=== PATIENT | male | born 1950 | race Caucasian/White ===

== ENCOUNTER → 2019-07-19 08:41 | Outpatient (CLI) | payer MEDICARE, BC ==
[~2019-07-19 08:41] MED LIST: BAYER CHEWABLE81 MG PO; CELEBREX200 MG PO; CO Q-10400 MG PO; COZAAR50 MG PO; FLAGYL500 MG PO; GLUCOPHAGE850 MG PO; GORDON'S VITE480 G1 TP; HYDROCHLOROTH12.5 M1 PO; LEVAQUIN750 MG PO; LIPITOR20 MG PO; METAMUCIL PACKE1 PKT PO; MIRALAX17 GM PO; PLAVIX75 MG PO; ULTRAM50 MG PO
--- NOTE | 2019-07-24 11:10 | ST ---
PATIENT:WILFRIDO BUCK MEDICAL RECORD: [id number] SEX: M LOCATION:[facility] ORDER #: ADMISSION DATE: 07/19/19 AGE OF PATIENT: 68 REFERRING PHYSICIAN: INTERPRETING PHYSICIAN: CASTRO CELIS MD DATE OF SERVICE: 07/19/2019 PROCEDURE: Nuclear stress test. INDICATIONS: Angina, shortness of breath, hypertension and hyperlipidemia. He was exercised on standard Lexiscan protocol with 33 mCi of sestamibi injected at peak stress, 11 mCi used previously for rest images. FINDINGS: Gated SPECT reveals preserved ejection fraction at 73% with good wall motion and thickening and brightening throughout all segments. SPECT Imaging: Cardiolite was used as myocardial perfusion agent. There is reversibility inferiorly as well as anteriorly. The inferior defect is moderate severity includes the basal, mid, apical, inferior segments. The anterior defect of mild severity, includes basal, mid, apical anterior segments. There is a large amount of myocardium at risk between the 2 defects. OVERALL IMPRESSION: This is an intermediate- to high-risk nuclear stress test with reversibility anteriorly as well as inferiorly suggestive of multivessel coronary artery disease. TRANSINT:[id number] Voice Confirmation ID: [id number] DOCUMENT ID: [id number] CASTRO CELIS MD at 1110 CC: TATIANA MAYER [id number] DICTATION DATE: 07/20/19 1435 STEEL FITTER: 07/21/19 0653 DEP CLI 07/19/19 [facility] [address] [place] [address]
[2019-08-08 13:15] VITALS: BMI 36.2
== END | disposition home or self-care (01) ==
LOC: D.HCCARDIO 08:41
PROVIDERS: ATTEND Internal Medicine Interventional Cardiology
DX: I20.9 Angina pectoris, unspecified (principal)

== ENCOUNTER 2019-07-28 09:16 | Outpatient (CLI) | payer MEDICARE, BC ==
[~2019-07-28] VITALS: Ht 180.3 cm; Wt 120.5 kg
--- NOTE | ~2019-07-28 | HEMODYNAMI ---
PATIENT:WILFRIDO BUCK MEDICAL RECORD: [id number] : 54 LOCATION:[facility] ADMISSION DATE: 07/28/19 Generatedon:07/31/20198:26 Patient name: WILFRIDO BUCK Patient #: [id number] SSN: [id number] : 1950 Date of study: 07/28/2019 Page: Of Hemodynamic Procedure Report Patient Data Patient Demographics Procedure consent was obtained First Name: WILFRIDO Gender: Male Last Name: CIELO : 1950 Patient #: [id number] Age: 68 year(s) Race: SSN: [id number] Additional ID: [id number] Contact details [address]: [address] [place] [address] State: [place] City: [place] Zip code: [address] Past Medical History Allergies: No known allergies Admission Admission Data Admission Date: 07/28/2019 Admission Time: 9:16 Arrival Date: 07/28/2019 Arrival Time: 0:00 Insurance Payor: Medicaid [facility] #: [id number] Height (in.): 70.87 BSA: 2.37 (m2) Height (cm.): 180 BMI: 37.04 (kg/m2) Weight (lbs.): 264.56 Weight (kg.): 120 Lab Results Lab Result Date: 07/28/2019 Lab Result Time: 0:00 Biochemistry Name Units Result Min Max BUN mg/dl 16 --(---*)-- 7 18 Creatinine mg/dl 1.1 --(--*-)-- 0.6 1.3 eGFR ml/min 70.81075 *-(----)-- 90 120 NONAFRICAN CBC Name Units Result Min Max Hemoglobin g/dl 13.3 -*(----)-- 13.5 17.5 Procedure Procedure Types Cath Procedure Diagnostic Procedure LHC LHC w/Coronaries FFR/IVUS FFR Initial FFR Additional Sedation Charges Moderate Sedation up to 15 minutes PCI Procedure Coronary Stent Coronary Stent Initial Procedure Description Procedure Date Procedure Date: 07/28/2019 Procedure Start Time: 13:35 Procedure End Time: 13:55 Procedure Staff Name Function Alexander Garcia RT Monitor Kalia Quinones MD Performing Physician Aye Khan RT Monitor Pal Underwood RN Nurse Elli Ruiz RT Scrub Indication Angina Procedure Data Cath Procedure Fluoroscopy Diagnostic fluoroscopy Total fluoroscopy Time: 3.2 time: 3.2 min min Diagnostic fluoroscopy Total fluoroscopy dose: 714 dose: 714 mGy mGy Contrast Material Contrast Material Type Amount (ml) Isovue 300 102 Entry Location Entry Primary Successful Side Size Upsize Upsize Entry Closure Succes sful Closure Location (Fr) 1 (Fr) 2 (Fr) Remarks Device Remarks Femoral Right 5 Fr 6 Fr Exoseal artery Short Estimated blood loss: 10 ml Diagnostic catheters Device Type Used For End Catheter Placement MULTIPACK Pigtail 5 Fr LV Angiography catheter MULTIPACK JL 4.0 5Fr Left Coronary catheter Angiography MULTIPACK 3DRC 5Fr Right Coronary catheter Angiography Procedure Complications No complications Procedure Medications Medication Administration Route Dosage 0.9% NaCl I.V. 100 ml/hr Oxygen etCO2 Nasal cannula 2 l/min Heparin Flush Bag added to field 2 bags (1000units/500ml NS) Lidocaine 2% added to field 20 Versed I.V. 2 mg Fentanyl I.V. 100 mcg Heparin Bolus I.V. 4000 units Integrilin (Bolus I.V. 10.7 ml 2mg/ml) Integrilin (Bolus wasted 9.3 ml 2mg/ml) Plavix P.O. 600 mg Hemodynamics Rest BSA: 2.37 (m2) HGB: 13.3 (g/dl) O2 Consumption: Estimated: 279.17 (ml/min) O2 Co nsumption indexed: Estimated:117.79 (ml/min/m) Heart Rate: 74 (bpm) Snapshots Pre Cath Intra NCS Post Cath Vital Signs Time Heart Resp SPO2 etCO2 NIBP (mmHg) Rhythm Pain Sedation Rate (ipm) (%) (mmHg) Status Level (bpm) 13:26:59 78 24 94 0 129/79(101) NSR 0 (11) 10(A) , No pain 13:31:15 77 11 95 42.5 122/71(89) NSR 0 (11) 10(A) , No pain 13:35:29 77 17 97 33.6 119/72(88) NSR 0 (11) 10(A) , No pain 13:39:43 75 16 95 20.9 118/76(93) NSR 0 (11) 10(A) , No pain 13:43:59 79 15 97 30.5 130/75(95) NSR 0 (11) 10(A) , No pain 13:48:17 82 11 96 29.8 115/73(89) NSR 0 (11) 10(A) , No pain 13:52:33 82 17 96 24.6 116/67(89) NSR 0 (11) 10(A) , No pain Medications Time Medication Route Dose Verified Delivered Reason Notes Effectiveness by by 13:36:20 0.9% NaCl I.V. 100 Pal Pal Per physician ml/hr Kj Underwood RN RN 13:36:31 Oxygen etCO2 2 Pal Pal for low 02 sats Nasal l/min Kj Underwood cannula RN RN 13:36:48 Heparin Flush added 2 Pal Pal used for Bag to bags Kj Underwood procedure (1000units/500ml field LIU RN NS) 13:36:59 Lidocaine 2% added 20ml Pal Pal for local to vial Kj Underwood anesthetic RN RN 13:37:12 Versed I.V. 2 mg Pal Pal for sedation Kj Underwood RN RN 13:37:20 Fentanyl I.V. 100 Pal Pal for sedation mcg Kj Underwood RN RN 13:44:02 Heparin Bolus I.V. 4000 Pal Pal for units Kj Underwood anticoagulation RN RN 13:45:16 Integrilin I.V. 10.7 Pal Pal for (Bolus 2mg/ml) ml Kj Underwood antiplatelet RN RN therapy 13:47:17 Integrilin wasted 9.3ml Pal Pal to sharp's (Bolus 2mg/ml) Kj Underwood RN RN 13:51:08 Plavix P.O. 600 Pal Pal for mg Kj Underwood antiplatelet RN RN therapy Procedure Log Time Note 13:08:21 Informed consent obtained and on chart 13:13:14 Procedure Status Elective Heart Cath (OP). 13:14:09 Indication : Angina 13:14:18 Pal Underwood RN sent for patient. Start room use. 13:14:22 Time tracking: Regular hours (M-F 7:00 - 5:00) 13:14:29 Plan of Care:Hemodynamics will remain stable., Cardiac rhythm will remain stable., Comfort level will be maintained., Respiratory function will remain adequate., Patient/ family verbilizes understanding of procedure., Procedure tolerated without complication., Recovers from procedure without complications.. 13:16:42 Arrival Date: 07/28/2019 12:00:00 AM 13:17:14 Insurance Payor : Medicaid 13:17:18 Patient Height : 70.87 inches 13:17:24 Patient Weight : 264.56 lbs 13:18:05 Lab Result : eGFR NONAFRICAN 70.01899 ml/min 13:18:05 Lab Result : Hemoglobin 13.3 g/dl 13:18:05 Lab Result : BUN 16 mg/dl 13:18:05 Lab Result : Creatinine 1.1 mg/dl 13:18:14 Patient received from Pre/Post Procedure Room to [facility] 1 Alert and oriented. Tansferred to table in Supine position. 13:25:48 Warm blankets applied, and marguerite hugger turned on for patient comfort. 13:25:49 Correct patient and procedure confirmed by team. 13:25:50 ECG and BP/O2 sat monitors applied to patient. 13:25:51 Vital chart was started 13:25:52 Baseline sample Acquired. 13:25:58 Rhythm: sinus rhythm 13:26:01 Full Disclosure recording started 13:26:02 - 13:26:11 H&P Date Dictated: 07/28/2019 H&P Addendum completed by physician on da y of procedure. (MUST COMPLETE FOR ALL OUTPATIENTS), New H&P dictated by physician.. 13:26:13 Pre-procedure instructions explained to patient. 13:26:14 Pre-op teaching completed and patient verbalized understanding. 13:26:17 Family in waiting room. 13:26:21 Patient NPO since Midnight. 13:26:32 Patient allergic to No known allergies 13:26:39 Is the patient allergic to Iodine/contrast media? No. 13:26:44 Was the patient premedicated? Yes 13:27:11 Is patient on blood thinner?No 13:27:16 ACC The patient was administered the following blood thiners within the last 24 hours: None 13:27:20 Patient diabetic? Yes. 13:27:23 If diabetic: On Metformin? Yes 13:27:36 If on Metformin: Last Dose? 07/26/2019 13:27:40 ----Pre-sedation anethsthesia assessment.---- 13:27:47 Previous problem with sedation/anesthesia? No ? 13:27:49 Snore? Yes 13:28:31 Sleep apnea? Yes 13:28:34 Deviated septum? No 13:28:36 Opens mouth fully? Yes 13:28:38 Sticks out tongue? Yes 13:28:51 Airway obstruction? Yes sleep apnea 13:28:58 Dentures? Yes in tight 13:29:04 Pre procedure: right dorsailis pedis pulse 2+ Normal; easily identifiable; not easily obliterated 13:29:08 Pre procedure: left dorsailis pedis pulse 2+ Normal; easily identifiable; not easily obliterated 13:29:17 Modified Rohit's test Radial > 7 seconds. failed. 13:29:38 Patient pain scale 0/10 ?. 13:29:46 IV patent on arrival in left forearm with 0.9% NaCl at O. 13:29:55 Lab results completed and on chart. 13:31:45 Risk of Mortality: 0.1 13:31:48 Risk of blood transfusion: 0.1 13:31:53 Risk of REJI: 0.2 13:31:57 Right groin area was prepped with chlora-prep and draped in sterile fashion 13:31:59 Alarms reviewed by R. N. 13:32:00 Sharps counted by scrub and verified by R.N. 13:32:03 Physician arrived 13:32:04 --------ALL STOP TIME OUT------ 13:32:08 Final Timeout: patient, procedure, and site verified with staff and physician. All members of the team are in agreement. 13:32:42 Right groin site verified by team. 13:32:49 Fire Safety Assessment: A--An alcohol-based skin anteseptic being used preoperatively., C--Open oxygen or nitrous oxide is being used., D--An ESU, laser, or fiber-optic light is being used. 13:32:54 Physical assessment completed. ASA score P 2 - A patient with mild systemic disease as per Kalia Quinones MD. 13:33:01 2) 60-89 Mildly reduced kidney function, and other findings (as for stage 1) point to kidney disease. 13:33:08 Maximum allowable contrast dose (3.7 X eGFR X 0.75)197 ml. 13:33:14 Sedation plan: IV Moderate Sedation Medication:Versed, Fentanyl 13:33:21 Use device set Femoral Dx 13:33:23 ACIST Syringe (06256) opened to sterile field. 13:33:24 Bag Decanter (2002S) opened to sterile field. 13:33:25 Medline Cath Pack ([id number]) opened to sterile field. 13:34:30 ACIST Manifold (12401) opened to sterile field. 13:34:30 ACIST Hand Control (16773) opened to sterile field. 13:34:32 DIAGNOSTIC Multipack 5Fr catheter set (AU5407) opened to sterile field. 13:34:33 Tegaderm 4 x 4 (1626W) opened to sterile field. 13:34:35 EMERALD Guide Wire (317-209) opened to sterile field. 13:34:35 SHEATH 5FR [place] (AHX517) opened to sterile field. 13:34:42 Zero performed for pressure channel P1 13:34:55 Procedure started. 13:35:00 Local anesthetic to right femoral artery with Lidocaine 2% by Kalia Quinones MD.INITIAL ACCESS ONLY 13:35:04 Injector settings: Ml/sec: 10, Volume: 20, 13:35:17 A 5 Fr sheath was inserted into the Right Femoral artery 13:35:35 A MULTIPACK Pigtail 5 Fr catheter was advanced over the wire and used for LV Angiography. 13:35:39 LV gram done using GUTIERREZ 13:36:10 EF : 55 % 13:36:18 Catheter removed. 13:36:20 0.9% NaCl 100 ml/hr I.V. was administered by Pal Lorigan RN; Per physician; Verbal order read back and verified. 13:36:29 A MULTIPACK JL 4.0 5Fr catheter was advanced over the wire and used for Left Coronary Angiography. 13:36:31 Oxygen 2 l/min etCO2 Nasal cannula was administered by Pal Underwood RN; for low 02 sats; Verbal order read back and verified. 13:36:48 Heparin Flush Bag (1000units/500ml NS) 2 bags added to field was administered by Pal Underwood RN; used for procedure; Verbal order read back and verified. 13:36:56 LCA angiography performed. 13:36:59 Lidocaine 2% 20ml vial added to field was administered by Pal Underwood RN; for local anesthetic; Verbal order read back and verified. 13:37:12 Versed 2 mg I.V. was administered by Pal Underwood RN; for sedation; Verbal order read back and verified. 13:37:20 Fentanyl 100 mcg I.V. was administered by Pal Underwood RN; for sedation; Verbal order read back and verified. 13:38:17 Catheter removed. 13:38:26 A MULTIPACK 3DRC 5Fr catheter was advanced over the wire and used for Right Coronary Angiography. 13:38:30 RCA angiography performed. 13:39:07 ACCDominant side:Co-Dominant 13:39:45 Catheter removed. 13:40:00 Sheath upsized to a 6 Fr Short. 13:40:07 GUIDE 6FR XBLAD 3.5 catheter ([id number]) opened to sterile field. 13:40:28 6 Fr xblad3.5 guide catheter was inserted over the wire 13:40:35 [place] Verrata Plus pressure wire (32119F) opened to sterile field. 13:40:44 INFLATOR Merit BasixCompak (NI3860) opened to sterile field. 13:41:00 SHEATH 6FR [place] (PYF141) opened to sterile field. 13:41:09 FFR/IFR wire advanced. 13:41:48 Wire advanced across lesion. 13:42:22 Wire advanced across the diag 13:43:30 Diag1 lesion measured at .90 with IFR 13:43:32 Wire redirected to lad. 13:43:42 Wire advanced across lesion. 13:43:51 mLAD lesion measured at 0.87 with IFR 13:44:02 Heparin Bolus 4000 units I.V. was administered by Pal Underwood RN; for anticoagulation; Verbal order read back and verified. 13:44:18 Pre PCI Site: [place] mLAD has 70% stenosis. 13:45:16 Integrilin (Bolus 2mg/ml) 10.7 ml I.V. was administered by Pal Underwood RN; for antiplatelet therapy; Verbal order read back and verified. 13:45:39 Place stent Inflation Number: 1 A MANSI RX 3.5 x 18 stent ([id number]) was prepped and advanced across the Mid LAD 70. The stent was deployed at 15 AMBERLY for 0:10 (min:sec) 0. 13:47:04 Stent catheter was removed intact over wire. 13:47:06 Wire removed. 13:47:07 Guide catheter removed. 13:47:17 Integrilin (Bolus 2mg/ml) 9.3ml wasted was administered by Pal Underwood RN; to sharp's; Verbal order read back and verified. 13:47:19 EXOSEAL 6Fr (EX600) opened to sterile field. 13:47:55 Sheath removed intact; hemostasis achieved with Exoseal to the Right Femoral artery. 13:47:58 Procedure ended.(Physican Out) 13:48:06 Contrast amount:Isovue 300 102ml. 13:48:19 Fluoroscopy dose: 714 mGy 13:48:19 Flurop Dose total: 714 13:48:27 Dose Area Product 82894 mGy/cm. 13:50:13 Maximum allowable dose exceeded? No. 13:50:15 Sharps counted by scrub and verified by R.N. 13:50:23 Fluoroscopy time 03.20 minutes. 13:50:27 Insertion/operative site no bleeding no hematoma. 13:50:32 Post-op/insertion site Right Femoral artery dressed using a 4 x 4 and Tegaderm. 13:50:37 Post right femoral artery:stable 13:50:40 Post Procedure Pulses reassessed and unchanged 13:50:46 Post-procedure physical assessment completed. ASA score P 2 - A patient with mild systemic disease as per Kalia Quinones MD. 13:50:51 Post procedure rhythm: unchanged. 13:50:56 Estimated blood loss: 10 ml 13:50:57 Post procedure instruction explained to patient.Patient verbalizes understanding. 13:50:58 Patient needs reinforcement of post procedure teaching. 13:51:08 Plavix 600 mg P.O. was administered by Pal Underwood RN; for antiplatelet therapy; Verbal order read back and verified. 13:51:34 Procedure type changed to Cath procedure, Diagnostic procedure, [facility], C w/Coronaries, FFR/IVUS, FFR Initial, FFR Additional, Sedation Charges, Moderate Sedation up to 15 minutes, PCI procedure, Coronary Stent, Coronary Stent Initial 13:53:46 ACT drawn and resulted at 236 seconds. (normal therapeutic range 180-24 0 seconds). 13:54:01 Procedure and supply charges have been captured, reviewed, submitted an d are correct. 13:55:15 Procedure Complication : No complications 13:55:18 Vital chart was stopped 13:55:23 [facility] Findings: MVD- PCI performed (see procedure note) 13:55:28 Operative report dictated upon procedure completion. 13:55:29 See physician's report for complete and final results. 13:55:31 Report given to Pre/Post Procedure Room. 13:55:35 Patient transfered to Pre/Post Procedure Room with Stretcher. 13:55:39 Procedure ended. 13:55:39 Full Disclosure recording stopped 13:55:48 ACC-PCI Only Patient was given prescriptions, or instructed by Kalia Quinones MD to start/continue the following medications upon discharge: Plavix 13:56:09 ACC Patient presents with Stable Angina CCS Anginal Class 2--Slight limitation of ordinary activity. 13:56:54 ACCPatient has been prescribed/administered the following anti-anginal medication within the last 2 weeks: CHERRI-Inhibitor 13:57:15 End room use (Document Last) Intervention Summary Intervention Notes Time ActionType Lesion and Equipment Used Action# Pressure Duration Attributes 13:45:39 Place stent Mid LAD MANSI RX 3.5 x 1 15 00:10 18 stent ([id number]) Device Usage Item Name Manufacture Quantity Catalog Hospital Part Current Minimal Lot# / Number Charge Number Stock Stock Serial# Code ACIST Syringe Acist 1 01334 030735 920111 691007 20 (91611) Bizimply Inc Bag Decanter Microtek 1 014303 98941 098283 5 () Elephanti Inc. Medline Cath Medline 1 [id number] 055447 53760 737311 5 Pack ([id number]) ACIST Hand Acist 1 32610 618647 729085 144129 5 Control Medical (96974) Systems Inc ACIST Manifold Acist 1 88086 157370 405554 980554 5 (88024) Medical Systems Inc DIAGNOSTIC Cardinal 1 PU4998 311088 87340 190335 30 Multipack 5Fr Health catheter set (LW6983) Tegaderm 4 x 4 3M 1 1626W 116059 238627 792932 5 (1626W) SHEATH 5FR Terumo 1 JHC512 868961 486009 821063 5 [place] (DWU697) EMERALD Guide Cardinal 1 502-455 523642 868665 055561 5 Wire (502-455) Health MULTIPACK Cardinal 1 809880 5 Pigtail 5 Fr Health catheter MULTIPACK JL Cardinal 1 775555 5 4.0 5Fr Health catheter MULTIPACK 3DRC Cardinal 1 123558 5 5Fr catheter Health GUIDE 6FR Cardinal 1 [id number] 308966 447313 242787 10 XBLAD 3.5 Health catheter (69655706) [place] 1 62833R 469894 772260775 722811 5 Verrata Plus pressure wire (80275L) INFLATOR Merit Merit 1 FI2258 618177 203846 998376 15 BasixCompak Medical (DK1438) SHEATH 6FR Terumo 1 IUK468 193284 989511 031476 40 [place] (FHV654) MANSI RX 3.5 x Medtronic 1 [id number] 935123 1210840 878324 5 [id number] 18 stent ([id number]) EXOSEAL 6Fr Cardinal 1 EX600 031285 279000 305687 10 (EX600) Health Signature Audit [place] Stage Time Signature Unsigned Intra-Procedure 07/28/2019 Aye 1:58:42 PM Erin RT(R) (CV) Intra-Procedure 07/28/2019 Pal 1:59:15 PM Kj LIU Intra-Procedure 07/28/2019 Kalia Quinones MD 1:59:42 PM 07/31/2019 8:22:26 AM Intra-Procedure 07/31/2019 Kalia Quinones 8:26:17 AM MD [facility] [address] [place] [address]
[2019-07-28] MEDS ORDERED: GLUCOPHAGE850 MG PO (10:06)
[2019-07-28] MEDS ORDERED: ULTRAM50 MG PO (10:06)
[2019-07-28] MEDS ORDERED: COZAAR50 MG PO (10:07)
[2019-07-28] MEDS ORDERED: LIPITOR20 MG PO (10:08)
[2019-07-28] MEDS ORDERED: HYDROCHLOROTH12.5 M1 PO (10:08)
[2019-07-28] MEDS ORDERED: GORDON'S VITE480 G1 TP (10:09)
[2019-07-28] MEDS ORDERED: CELEBREX200 MG PO (10:09)
[2019-07-28] MEDS ORDERED: METAMUCIL PACKE1 PKT PO (10:09)
[2019-07-28] MEDS ORDERED: CO Q-10400 MG PO (10:09)
[2019-07-28] MEDS ORDERED: MIRALAX17 GM PO (10:10)
[2019-07-28 10:23] VITALS: BP 138/72; Ht 180.3 cm; Wt 120.5 kg
[2019-07-28 10:38] LABS: BASOPHILS 0.1 % (0-2); EOSINOPHILS 1.1 % (0-7); HEMOGLOBIN 13.3 g/dL (13.5-17.5); IMMATURE GRANULOCYTES 0.3 % (0-5); LYMPHOCYTES 16.5 % (15-50); MCH 24.6 pg (26.0-34.0); MCHC 31.7 g/dL (31.0-37.0); MCV 77.6 fL (80.0-100.0); MEAN PLATELET VOLUME 11.2 fL (7.4-10.4); MONOCYTES 10.6 % (2-11); NEUTROPHILS 71.4 % (40-80); PLATELET COUNT 253 10x3/uL (130-400); RBC 5.41 10x6/uL (4.20-6.10); RDW 15.6 % (11.5-14.5); WBC 10.8 10x3/uL (4.8-10.8)
[2019-07-28 10:52] LABS: ANION GAP 10.3 mmol/L (8-16); CALCIUM 9.2 mg/dL (8.5-10.1); CARBON DIOXIDE 29.8 mmol/L (21.0-32.0); CREATININE - SERUM 1.1 mg/dL (0.6-1.3); POTASSIUM - SERUM 4.1 mmol/L (3.5-5.1)
[2019-07-28 11:06] LABS: LDL-HDL RATIO 2.4 ratio (1.5-3.5)
--- NOTE | 2019-07-28 14:04 | NUR ---
PT ARRIVED BY STRETCHER. PLACED ON MONITORS. ASSESSMENT COMPLETED. FAMILY AT BEDSIDE. VSS.
[2019-07-28] MEDS ORDERED: BAYER CHEWABLE81 MG PO (14:15)
[2019-07-28] MEDS ORDERED: PLAVIX75 MG PO (14:15)
--- NOTE | 2019-07-28 14:20 | NUR ---
PT RESTING COMFORTABLY. VSS. RIGHT GROIN DRESSING C/D/I. NO S/S OF HEMATOMA NOTED. CALL LIGHT WITHIN REACH. FAMILY AT BEDSIDE.
--- NOTE | 2019-07-28 14:50 | NUR ---
RIGHT GROIN DRESSING C/D/I. NO S/S OF HEMATOMA NOTED. CALL LIGHT WITHIN REACH. FAMILY AT BEDSIDE. VSS. RIGHT PEDAL PULSE PALPABLE.
--- NOTE | 2019-07-28 15:20 | NUR ---
RIGHT GROIN DRESSING C/D/I. NO S/S OF HEMATOMA NOTED. CALL LIGHT WITHIN REACH. FAMILY AT BEDSIDE. VSS. RIGHT PEDAL PULSE PALPABLE. PT TOLERATING SIPS OF WATER. DENIES NAUSEA.
--- NOTE | 2019-07-28 15:50 | NUR ---
PT RESTING COMFORTABLY. RIGHT GROIN DRESSIN C/D/I. NO S/S OF HEMATOMA NOTED. CALL LIGHT WITHIN REACH. VSS.
--- NOTE | 2019-07-28 16:30 | NUR ---
HEAD OF BED INC TO 30 DEGREES. TOLERATED WELL. RIGHT GROIN DRESSING C/D/I. NO S/S OF HEMATOMA NOTED. CALL LIGHT WITHIN REACH. FAMILY AT BEDSIDE. SET UP WITH SANDWICH TRAY AND DRINK. DENIES NAUSEA/PAIN AT THIS TIME.
--- NOTE | 2019-07-28 17:18 | NUR ---
PIV D/C'D WITH CATH TIP INTACT. PT TOLERATED WELL. RIGHT GROIN DRESSING C/D/I. NO S/S OF HEMATOMA NOTED. VSS. PT INSTRUCTED TO GET UP AND DRESSED. AMBULATED TO RESTROOM. VOIDED WITHOUT DIFFICULTY.
--- NOTE | 2019-07-28 17:30 | NUR ---
DISCUSSED DISCHARGE INSTRUCTIONS WITH PT AND PT'S FAMILY. THEY VOICED UNDERSTANDING.
--- NOTE | 2019-07-28 17:35 | NUR ---
PT TAKEN OUT TO VEHICLE BY WHEELCHAIR. NO S/S OF DISTRESS NOTED. ALL BELONGINGS AND PAPERWORK IN HAND.
--- NOTE | 2019-08-08 11:40 | OP ---
PATIENT NAME: WILFRIDO BUCK MEDICAL RECORD: [id number] :54 LOCATION:D.CAT ADMISSION DATE: SURGEON: CASTRO CELIS MD DATE OF OPERATION: 07/28/2019 PROCEDURES: 1. PTCA stent LAD. 2. IFR LAD and LAD diagonal. 3. Left heart catheterization. 4. Selective coronary angiography. 5. Left ventriculogram. INDICATION: Angina and coronary artery disease. PROCEDURE PERFORMED: After informed consent was obtained and after a detailed description of risks, benefits as well as alternative therapies, the patient elected to proceed with angiogram and angioplasty. The right femoral area was prepped and draped in normal sterile fashion. Right femoral artery was cannulated via modified Seldinger technique with placement of 6-Luxembourgish sheath. All catheters exchanged through this sheath. FINDINGS: Left ventriculogram was performed in standard 30-degree GUTIERREZ view, reveals good cardiac wall motion, ejection fraction in the 55% range. SELECTIVE CORONARY ANGIOGRAPHY: 1. Left main is with no significant angiographic disease. 2. Left anterior descending has a 70% to 75% stenosis in the mid vessel. An IFR was abnormal at 0.84. There is a questionable stenosis of the diagonal; however, IFR is normal at 0.90. 3. The left circumflex has mild irregularities, but no flow-limiting stenosis. 4. The right coronary has mild irregularities, but no flow-limiting stenosis. PTCA STENT OF THE LAD: The stent used was a 3.5 x 18 mm [place]. Result was 0% residual stenosis. OVERALL IMPRESSION: Successful percutaneous transluminal angioplasty stent of the left anterior descending going from 70% to 75% initial stenosis with an abnormal IFR to 0% residual stenosis. TRANSINT:[id number] Voice Confirmation ID: [id number] DOCUMENT ID: [id number] CASTRO CELIS MD at 1140 CC: [id number] DICTATION DATE: 07/28/19 1352 RODENT CONTROL WORKER: 07/28/19 1448 DEP CLI 07/28/19 [facility] [address] [place] [address]
== END 2019-07-28 17:35 | disposition home or self-care (01) ==
LOC: D.CATH 09:16
PROVIDERS: ATTEND Internal Medicine Interventional Cardiology
DX: I25.110 Atherosclerotic heart disease of native coronary artery with unstable angina pectoris (principal); R94.30 Abnormal result of cardiovascular function study, unspecified; R06.02 Shortness of breath
CPT/HCPCS: C9600; 93572; 93458

== ENCOUNTER 2019-08-07 13:30 | Inpatient (IN) | payer MEDICARE, BC ==
[~2019-08-07] VITALS: Ht 180.3 cm; Wt 117.9 kg
[~2019-08-07 13:30] MED LIST changes: -FLAGYL500 MG PO; -LEVAQUIN750 MG PO
[2019-08-07 14:39] LABS: ANION GAP 12.8 mmol/L (8-16); CALCIUM 8.9 mg/dL (8.5-10.1); CARBON DIOXIDE 30.3 mmol/L (21.0-32.0); CREATININE - SERUM 1.2 mg/dL (0.6-1.3); POTASSIUM - SERUM 4.1 mmol/L (3.5-5.1)
[2019-08-07 14:40] LABS: BASOPHILS 0.3 % (0-2); EOSINOPHILS 1.8 % (0-7); HEMATOCRIT 37.1 % (42.0-54.0); HEMOGLOBIN 11.5 g/dL (13.5-17.5); IMMATURE GRANULOCYTES 0.4 % (0-5); LYMPHOCYTES 22.5 % (15-50); MCH 24.3 pg (26.0-34.0); MCV 78.4 fL (80.0-100.0); MONOCYTES 8.3 % (2-11); NEUTROPHILS 66.7 % (40-80); PLATELET COUNT 294 10x3/uL (130-400); RBC 4.73 10x6/uL (4.20-6.10); RDW 15.3 % (11.5-14.5)
[2019-08-07 14:45] LABS: ALBUMIN 3.6 g/dL (3.4-5.0); BILIRUBIN - TOTAL 0.6 mg/dL (0.2-1.3); PROTEIN - SERUM 7.9 g/dL (6.4-8.2)
[2019-08-07 17:25] VITALS: BP 145/74
[2019-08-07 19:06] VITALS: BP 130/76
--- NOTE | 2019-08-07 19:46 | MORECARE ---
CASE MANAGEMENT DISCHARGE SUMMARY PATIENT: WILFRIDO SIMON UNIT: [id number] ADM DATE: 08/07/19 AGE: 68 : 54 SEX: M ROOM/BED: D.2209 AUTHOR: AMEE JAMA PHYSICIAN: REFERRING PHYSICIAN: TATIANA MAYER DO DATE OF SERVICE: 08/07/19 Discharge Plan Patient Name: WILFRIDO SIMON Facility: [facility]:[place] : 1950 Planned Disposition: Home Anticipated Discharge Date: 08/09/19 Discharge Date: Expected LOS: 2 Initial Reviewer: [email or web address] Initial Review Date: 08/07/2019 Generated: 08/07/19 8:46 pm DCPIA - Discharge Planning Initial Assessment Updated by [email or web address]: Rachel Anthony on 08/07/19 7:45 pm * Is the patient Alert and Oriented? Yes * How many steps to enter\exit or inside your home? * PCP Dr. Mayer * Pharmacy [facility] * Preadmission Environment Home with Family * ADLs Independent * Equipment Bedside Commode Cane Crutch Rolling Walker * List name and contact numbers for known caregivers / representatives who currently or will assist patient after discharge: Radha Simon - - [phone] * Verbal permission to speak to the caregivers and representatives has been obtained from the patient. Yes * Community resources currently utilized None * Additional services required to return to the preadmission environment? No * Can the patient safely return to the preadmission environment? Yes * Has this patient been hospitalized within the prior 30 days at any hospital? No Patient Name: WILFRIDO SIMON Page [id number] at 1946 All edits/amendments must be made on the electronic document DICTATION DATE: 08/07/191945 COST SPECIALIST: MERLYN 08/07/191945 RPT#: [id number] DC DATE: STATUS: ADM IN [facility] [address] [place] [address] END OF REPORT
--- NOTE | 2019-08-07 19:53 | MORECARE ---
CASE MANAGEMENT DISCHARGE SUMMARY PATIENT: WILFRIDO SIMON UNIT: [id number] ADM DATE: 08/07/19 AGE: 68 : 54 SEX: M ROOM/BED: D.2209 AUTHOR: EVITA,DOC PHYSICIAN: REFERRING PHYSICIAN: TATIANA MAYER DO DATE OF SERVICE: 08/07/19 Discharge Plan Patient Name: WILFRIDO SIMON Facility: [facility]:[place] : 1950 Planned Disposition: Home Anticipated Discharge Date: 08/09/19 Discharge Date: Expected LOS: 2 Initial Reviewer: [email or web address] Initial Review Date: 08/07/2019 Generated: 08/07/19 8:52 pm DCP- Discharge Planning Updated by [email or web address]: Rachel Anthony on 08/07/19 6:[address] DC PLAN: Home with independently. ANTICIPATED DC NEEDS: Denied known dc needs. CM met with patient to complete initial dc planning assessment. CM educated patient on the CM role and verbal consent given by patient to complete assessment. CM verified patient's address, phone number, and emergency contact phone numbers. Patient lives at home with his independently. At discharge patient plans to return home and feels this is a safe discharge. CM discussed availability of home health, rehab services, and medical equipment. Patient denied known discharge needs at this time. Transportation provider at discharge will be his . CM will continue to follow and will assist as needed with dc plans/needs. listed all 3 of their children to be able to receive information on patient: Dorina Ruggiero, Sarah Simon. Rachel Anthony RN, [facility] DCPIA - Discharge Planning Initial Assessment Updated by [email or web address]: Rachel Anthony on 08/07/19 7:45 pm * Is the patient Alert and Oriented? Yes * How many steps to enter\exit or inside your home? * PCP Dr. Mayer * Pharmacy [facility] * Preadmission Environment Home with Family * ADLs Independent * Equipment Bedside Commode Cane Crutch Rolling Walker * List name and contact numbers for known caregivers / representatives who currently or will assist patient after discharge: Radha Simon - - [phone] * Verbal permission to speak to the caregivers and representatives has been obtained from the patient. Yes * Community resources currently utilized None * Additional services required to return to the preadmission environment? No * Can the patient safely return to the preadmission environment? Yes * Has this patient been hospitalized within the prior 30 days at any hospital? No Last DP export: 08/07/19 6:46 Patient Name: WILFRIDO SIMON Page [id number] at 1951 All edits/amendments must be made on the electronic document DICTATION DATE: 08/07/191951 CALL CIRCUIT WORKER: MERLYN 08/07/191951 RPT#: [id number] DC DATE: STATUS: ADM IN [facility] [address] [place] [address] END OF REPORT
[2019-08-07 22:13] VITALS: BP 135/65
[2019-08-07 22:25] VITALS: BP 135/65; BMI 36.3
[2019-08-07 23:22] LABS: HEMATOCRIT 33.3 % (42.0-54.0); HEMOGLOBIN 10.6 g/dL (13.5-17.5)
[2019-08-08 01:21] VITALS: BP 133/65
[2019-08-08 01:24] LABS: APPEARANCE CLEAR (CLEAR); BILIRUBIN NEGATIVE (NEGATIVE); COLOR YELLOW (YELLOW); GLUCOSE NEGATIVE (NEGATIVE); KETONE NEGATIVE (NEGATIVE); NITRITE NEGATIVE (NEGATIVE); PROTEIN NEGATIVE (NEGATIVE); SPECIFIC GRAVITY 1.015 (1.005-1.020); UROBILINOGEN NORMAL (NORMAL)
--- NOTE | 2019-08-08 02:58 | NUR ---
Patient admitted from ER, with at bedside. Alert and orented x4 able to voice needs and wants to staff, on room air but stated that has a c-pap that he uses at night at home , not with pt. at this time. IV to left AC with protonix IV. Iv is intact with no redness noted. IV to right hand witn ns in place and paten, with no redness noted at this time. Call light in reach, side rails up x2 . Remaines NPO per orders. Telemetry in place 69 SR. FSBS AC&HS. SCD's in place. checked often for needs and safety.
[2019-08-08 05:34] VITALS: BP 114/65
[2019-08-08 07:02] LABS: BASOPHILS 0.1 % (0-2); EOSINOPHILS 1.5 % (0-7); HEMATOCRIT 33.7 % (42.0-54.0); HEMOGLOBIN 10.2 g/dL (13.5-17.5); IMMATURE GRANULOCYTES 0.4 % (0-5); MCH 23.7 pg (26.0-34.0); MCHC 30.3 g/dL (31.0-37.0); MCV 78.4 fL (80.0-100.0); MEAN PLATELET VOLUME 11.1 fL (7.4-10.4); MONOCYTES 10.6 % (2-11); NEUTROPHILS 70.4 % (40-80); PLATELET COUNT 250 10x3/uL (130-400); RDW 15.6 % (11.5-14.5); WBC 8.4 10x3/uL (4.8-10.8)
[2019-08-08 07:12] LABS: APTT 25.5 SECONDS (22.8-39.4); INR 1.17 (0.85-1.17); PROTIME 14.4 SECONDS (11.6-15.0)
[2019-08-08 07:16] LABS: ALBUMIN 3.1 g/dL (3.4-5.0); ANION GAP 11.2 mmol/L (8-16); BILIRUBIN - TOTAL 0.71 mg/dL (0.2-1.3); CALCIUM 8.8 mg/dL (8.5-10.1); CARBON DIOXIDE 28.8 mmol/L (21.0-32.0); CREATININE - SERUM 1.1 mg/dL (0.6-1.3); MAGNESIUM - SERUM 2.1 mg/dL (1.8-2.4); PHOSPHOROUS 3.7 mg/dL (2.5-4.9); PROTEIN - SERUM 6.8 g/dL (6.4-8.2)
--- NOTE | 2019-08-08 07:34 | NUR ---
PT IS RESTING IN BED WITH EYES CLOSED. RESPIRATIONS ARE EVEN AND UNLABORED. PT IS EASILY AROUSED WITH VERBAL STIMULATION. PT IS AAO X 4 UPO AROUSAL. AT BEDSIDE. PT DENIES PRESENCE OF PAIN/N/V AT THIS TIME. PT REPORTS THAT HE HAS NOT HAD BM "TODAY". BED IS IN THE LOWEST POSITION. CALL LIGHT AND BEDSIDE TABLE ARE WITHIN REACH. SIDE RAILS X 2. PT DENIES FURTHER NEEDS. PIV TO RIGHT HAND INFUSING WITHOUT DIFFICULTY. WILL CONT TO MONITOR.
[2019-08-08 08:42] VITALS: BP 132/73
[2019-08-08 11:59] LABS: HEMATOCRIT 34.1 % (42.0-54.0); HEMOGLOBIN 10.4 g/dL (13.5-17.5)
[2019-08-08 12:25] VITALS: BP 155/75
[2019-08-08 13:15] VITALS: Ht 180.3 cm; Wt 117.9 kg
[2019-08-08 16:58] VITALS: BP 150/74
[2019-08-08 17:05] LABS: HEMATOCRIT 35.7 % (42.0-54.0); HEMOGLOBIN 10.9 g/dL (13.5-17.5)
[2019-08-08 21:26] VITALS: BP 121/68
[2019-08-08 23:06] LABS: HEMATOCRIT 33.3 % (42.0-54.0); HEMOGLOBIN 10.2 g/dL (13.5-17.5)
[2019-08-09 02:26] VITALS: BP 114/71
--- NOTE | 2019-08-09 03:42 | NUR ---
ALERT AND ORENTED ABLE TO VOICE NEEDS AND WANTS TO STAFF. NO S/S OF DISTRESS AT BEDSIDE. CALL LIGHT AND WATER IN REACH.
[2019-08-09 05:51] VITALS: BP 150/74
[2019-08-09 06:50] LABS: BASOPHILS 0.2 % (0-2); EOSINOPHILS 1.2 % (0-7); HEMATOCRIT 33.7 % (42.0-54.0); HEMOGLOBIN 10.3 g/dL (13.5-17.5); IMMATURE GRANULOCYTES 0.4 % (0-5); MCH 23.8 pg (26.0-34.0); MCHC 30.6 g/dL (31.0-37.0); MEAN PLATELET VOLUME 10.8 fL (7.4-10.4); MONOCYTES 12.2 % (2-11); PLATELET COUNT 275 10x3/uL (130-400); RBC 4.32 10x6/uL (4.20-6.10); RDW 15.6 % (11.5-14.5); WBC 8.3 10x3/uL (4.8-10.8)
--- NOTE | 2019-08-09 07:15 | NUR ---
PT RESTING IN BED. RESP EVEN AND UNLABORED. SPOUSE AT BEDSIDE. PT REPORTS PAIN 3/10 AT THIS TIME. PT CONTINUES TO VOICE DIARRHEA WITHOUT BLOOD NOTED. IV TO RIGHT HAND NS @ 100ML/HR INFUSING VIA PUMP. IV TO LEFT ARM WITH PROTONIX @ 10ML/HR INFUSING VIA PUMP. SITES WITHOUT REDNESS OR EDEMA. PT DENIES FURTHER NEEDS AT THIS TIME. CL WITHIN REACH. ENCOURAGED TO CALL WITH NEEDS. CONTINUE POC
[2019-08-09 07:26] LABS: ANION GAP 15.9 mmol/L (8-16); CALCIUM 8.4 mg/dL (8.5-10.1); CARBON DIOXIDE 23.2 mmol/L (21.0-32.0); CREATININE - SERUM 1.2 mg/dL (0.6-1.3); PHOSPHOROUS 3.3 mg/dL (2.5-4.9); POTASSIUM - SERUM 4.1 mmol/L (3.5-5.1)
[2019-08-09 08:45] VITALS: BP 152/73
[2019-08-09 12:16] VITALS: BP 171/64
[2019-08-09 16:44] VITALS: BP 169/75
[2019-08-09 19:00] VITALS: BP 177/81
--- NOTE | 2019-08-09 20:00 | NUR ---
ALERT SITTING UP IN BED, DENIES PAIN OR NEEDS AT THIS TIME, REPORTS NO MORE BLOOD IN STOOLS, SEE SHIFT ASSESSMENT, CALL LIGHT IN REACH
[2019-08-10] VITALS: BP 180/78
[2019-08-10 05:00] VITALS: BP 135/70
[2019-08-10 05:57] LABS: BASOPHILS 0.2 % (0-2); HEMATOCRIT 33.7 % (42.0-54.0); HEMOGLOBIN 10.4 g/dL (13.5-17.5); IMMATURE GRANULOCYTES 0.4 % (0-5); LYMPHOCYTES 23.7 % (15-50); MCHC 30.9 g/dL (31.0-37.0); MCV 77.8 fL (80.0-100.0); MEAN PLATELET VOLUME 10.6 fL (7.4-10.4); MONOCYTES 12.9 % (2-11); NEUTROPHILS 60.8 % (40-80); PLATELET COUNT 301 10x3/uL (130-400); RBC 4.33 10x6/uL (4.20-6.10); RDW 15.6 % (11.5-14.5); WBC 8.2 10x3/uL (4.8-10.8)
[2019-08-10 06:21] LABS: ANION GAP 10.7 mmol/L (8-16); CALCIUM 8.5 mg/dL (8.5-10.1); CREATININE - SERUM 1.2 mg/dL (0.6-1.3); MAGNESIUM - SERUM 2.1 mg/dL (1.8-2.4); PHOSPHOROUS 3.1 mg/dL (2.5-4.9); POTASSIUM - SERUM 3.7 mmol/L (3.5-5.1)
--- NOTE | 2019-08-10 07:15 | NUR ---
PT SITTING UP IN BED WATCHING TV, WITH AT BEDSIDE. RESP EVEN AND UNLABORED. PT DENIES PAIN AT THIS TIME. SALINE LOC TO RIGHT HAND. SITE WITHOUT REDNESS OR EDEMA. PT DENIES FURTHER NEEDS AT THIS TIME. CL WITHIN REACH. ENCOURAGED TO CALL WITH NEEDS. CONTINUE POC
[2019-08-10 08:56] VITALS: BP 176/85
[2019-08-10 12:49] VITALS: BP 171/75
[2019-08-10 16:28] VITALS: BP 159/72
[2019-08-10 19:00] VITALS: BP 133/71
[2019-08-11] VITALS: BP 136/71
[2019-08-11 04:00] VITALS: BP 137/76
[2019-08-11 06:53] LABS: BASOPHILS 0.1 % (0-2); EOSINOPHILS 2.3 % (0-7); HEMATOCRIT 33.9 % (42.0-54.0); HEMOGLOBIN 10.4 g/dL (13.5-17.5); IMMATURE GRANULOCYTES 0.5 % (0-5); LYMPHOCYTES 22.4 % (15-50); MCH 23.9 pg (26.0-34.0); MCHC 30.7 g/dL (31.0-37.0); MCV 77.9 fL (80.0-100.0); MEAN PLATELET VOLUME 10.8 fL (7.4-10.4); MONOCYTES 9.7 % (2-11); PLATELET COUNT 315 10x3/uL (130-400); RBC 4.35 10x6/uL (4.20-6.10); RDW 15.7 % (11.5-14.5); WBC 8.9 10x3/uL (4.8-10.8)
[2019-08-11 07:15] LABS: ANION GAP 11.7 mmol/L (8-16); CALCIUM 8.7 mg/dL (8.5-10.1); CARBON DIOXIDE 26.4 mmol/L (21.0-32.0); CREATININE - SERUM 1.1 mg/dL (0.6-1.3); MAGNESIUM - SERUM 2.2 mg/dL (1.8-2.4); PHOSPHOROUS 3.7 mg/dL (2.5-4.9); POTASSIUM - SERUM 4.1 mmol/L (3.5-5.1)
--- NOTE | 2019-08-11 07:36 | NUR ---
PT RESTING IN BED. NO SIGNS OF DISTRESS. IV TO LEFT HAND PATENT NO REDNESS OR TENDERNESS. ON TELEMETRY 65 SR. DENIES ANY FURTHER NEED AT THIS TIME. CALL LIGHT IN REACH. BED LOW POSITION. FAMILY AT BEDSIDE AT THIS TIME.
[2019-08-11 08:12] VITALS: BP 133/75
[2019-08-11] MEDS ORDERED: LEVAQUIN750 MG PO (12:06)
[2019-08-11] MEDS ORDERED: FLAGYL500 MG PO (12:06)
--- NOTE | 2019-08-11 13:31 | MORECARE ---
CASE MANAGEMENT DISCHARGE SUMMARY PATIENT: WILFRIDO SIMON UNIT: [id number] ADM DATE: 08/07/19 AGE: 68 : 52 SEX: M ROOM/BED: D.2209 AUTHOR: EVITA,DOC PHYSICIAN: REFERRING PHYSICIAN: TATIANA MAYER DO DATE OF SERVICE: 08/11/19 Discharge Plan Patient Name: WILFRIDO SIMON Facility: [facility]:[place] : 1950 Planned Disposition: Home Anticipated Discharge Date: 08/09/19 Discharge Date: Expected LOS: 2 Initial Reviewer: [email or web address] Initial Review Date: 08/07/2019 Generated: 08/11/19 2:31 pm Comments DCP- Discharge Planning Updated by [email or web address]: Andreea Mauricio on 08/11/19 12:[address] PATIENT DISCHARGING HOME TODAY, IMM SERVED AND EXPLAINED. PATIENT DENIES ANY NEEDS AT THIS TIME. CM TO FOLLOW AND ASSIST NEEDED DCP- Discharge Planning Updated by [email or web address]: Rachel Anthony on 08/07/19 6:[address] DC PLAN: Home with independently. ANTICIPATED DC NEEDS: Denied known dc needs. CM met with patient to complete initial dc planning assessment. CM educated patient on the CM role and verbal consent given by patient to complete assessment. CM verified patient's address, phone number, and emergency contact phone numbers. Patient lives at home with his independently. At discharge patient plans to return home and feels this is a safe discharge. CM discussed availability of home health, rehab services, and medical equipment. Patient denied known discharge needs at this time. Transportation provider at discharge will be his . CM will continue to follow and will assist as needed with dc plans/needs. listed all 3 of their children to be able to receive information on patient: Dorina Ruggiero, [place]. Rachel Anthony RN, [facility] DCPIA - Discharge Planning Initial Assessment Updated by [id number]: Rachel Anthony on 08/07/19 7:45 pm * Is the patient Alert and Oriented? Yes * How many steps to enter\exit or inside your home? * PCP Dr. Mayer * Pharmacy [facility] * Preadmission Environment Home with Family * ADLs Independent * Equipment Bedside Commode Cane Crutch Rolling Walker * List name and contact numbers for known caregivers / representatives who currently or will assist patient after discharge: Radha Simon - - [phone] * Verbal permission to speak to the caregivers and representatives has been obtained from the patient. Yes * Community resources currently utilized None * Additional services required to return to the preadmission environment? No * Can the patient safely return to the preadmission environment? Yes * Has this patient been hospitalized within the prior 30 days at any hospital? No Coverage Notice Reviewer: [id number] Mario Mauricio Notice Issued Date-Time: 08/11/2019 13:25 Notice Type: IM Discharge Notice Notice Delivered To: Patient Relationship to Patient: Mixing Picker Tender Name: Delivery Method: HAND - Hand Delivered Corin Days: Prior Verbal Notification: Recipient Understood Notice: Yes Recipient Signature: Yes Med Rec Note Co-signed by Attending: Coverage Notice Comment: Last DP export: 08/07/19 6:53 Patient Name: WILFRIDO SIMON Page [id number] at 1331 All edits/amendments must be made on the electronic document DICTATION DATE: 08/11/19 1330 CHAMBER WALKER: MERLYN 08/11/19 1330 RPT#: [id number] DC DATE: STATUS: ADM IN [facility] [address] [place] [address] END OF REPORT
--- NOTE | 2019-08-11 14:01 | NUR ---
DISCHARGE INSTRUTION GIVEN. SEEMS TO UNDERSTAND INSTRUCTIONS. IV OUT TIP INTACT. TELEMETRY OFF AND RETURNED LEFT WITH HOSTPIAL STAFF TO GO HOME IN PERSONAL RIDE WITH .
--- NOTE | 2019-08-11 15:24 | MORECARE ---
CASE MANAGEMENT DISCHARGE SUMMARY PATIENT: WILFRIDO SIMON UNIT: [id number] ADM DATE: 08/07/19 AGE: 68 : 54 SEX: M ROOM/BED: D.2209 AUTHOR: EVITA,DOC PHYSICIAN: REFERRING PHYSICIAN: TATIANA MAYER DO DATE OF SERVICE: 08/11/19 Discharge Plan Patient Name: WILFRIDO SIMON Facility: [facility]:[place] : 1950 Planned Disposition: Home Anticipated Discharge Date: 08/09/19 Discharge Date: 08/11/2019 Expected LOS: 2 Initial Reviewer: [email or web address] Initial Review Date: 08/07/2019 Generated: 08/11/19 4:24 pm Comments DCP- Discharge Planning Updated by [id number]: Andreea Mauricio on 08/11/19 12:[address] PATIENT DISCHARGING HOME TODAY, IMM SERVED AND EXPLAINED. PATIENT DENIES ANY NEEDS AT THIS TIME. CM TO FOLLOW AND ASSIST NEEDED DCP- Discharge Planning Updated by [email or web address]: Rachel Anthony on 08/07/19 6:[address] DC PLAN: Home with independently. ANTICIPATED DC NEEDS: Denied known dc needs. CM met with patient to complete initial dc planning assessment. CM educated patient on the CM role and verbal consent given by patient to complete assessment. CM verified patient's address, phone number, and emergency contact phone numbers. Patient lives at home with his independently. At discharge patient plans to return home and feels this is a safe discharge. CM discussed availability of home health, rehab services, and medical equipment. Patient denied known discharge needs at this time. Transportation provider at discharge will be his . CM will continue to follow and will assist as needed with dc plans/needs. listed all 3 of their children to be able to receive information on patient: Dorina Ruggiero, Sarah Simon. Rachel Anthony RN, [facility] DCPIA - Discharge Planning Initial Assessment Updated by [id number]: Rachel Anthony on 08/07/19 7:45 pm * Is the patient Alert and Oriented? Yes * How many steps to enter\exit or inside your home? * PCP Dr. Mayer * Pharmacy [facility] * Preadmission Environment Home with Family * ADLs Independent * Equipment Bedside Commode Cane Crutch Rolling Walker * List name and contact numbers for known caregivers / representatives who currently or will assist patient after discharge: Radha Simon - - [phone] * Verbal permission to speak to the caregivers and representatives has been obtained from the patient. Yes * Community resources currently utilized None * Additional services required to return to the preadmission environment? No * Can the patient safely return to the preadmission environment? Yes * Has this patient been hospitalized within the prior 30 days at any hospital? No Coverage Notice Reviewer: [id number] Mario Mauricio Notice Issued Date-Time: 08/11/2019 13:25 Notice Type: IM Discharge Notice Notice Delivered To: Patient Relationship to Patient: Intervention Teacher Name: Delivery Method: HAND - Hand Delivered Corin Days: Prior Verbal Notification: Recipient Understood Notice: Yes Recipient Signature: Yes Med Rec Note Co-signed by Attending: Coverage Notice Comment: Last DP export: 08/11/19 12:31 p Patient Name: WILFRIDO SIMON Page [phone] at 1524 All edits/amendments must be made on the electronic document DICTATION DATE: 08/11/191523 AVIATION ORDNANCE OFFICER: MERLYN 08/11/191523 RPT#: [id number] DC DATE:08/11/19 STATUS: DIS IN [facility] [address] [place] [address] END OF REPORT
== END 2019-08-11 14:02 | disposition home or self-care (01) | DRG 378 ==
LOC: D.ER 13:30 → D.MS 19:06
PROVIDERS: Family Medicine; ADMIT Family Medicine; ATTEND Family Medicine
DX: K57.93 Diverticulitis of intestine, part unspecified, without perforation or abscess with bleeding (principal); D62 Acute posthemorrhagic anemia; I10 Essential (primary) hypertension; E78.5 Hyperlipidemia, unspecified; E11.9 Type 2 diabetes mellitus without complications; G47.33 Obstructive sleep apnea (adult) (pediatric); Z85.46 Personal history of malignant neoplasm of prostate; D50.9 Iron deficiency anemia, unspecified; Z79.01 Long term (current) use of anticoagulants; I25.10 Atherosclerotic heart disease of native coronary artery without angina pectoris

== ENCOUNTER → 2020-12-11 07:36 | Outpatient (CLI) | payer MEDICARE, BC ==
[2020-12-01 18:00] VITALS: BMI 37.7
[~2020-12-11 07:36] MED LIST changes: +FLAGYL500 MG PO; +LEVAQUIN750 MG PO; +PROAIR HFA8.5 G1 INH
== END | disposition home or self-care (01) ==
LOC: D.HCCARDIO 07:36
PROVIDERS: ATTEND Internal Medicine Cardiovascular Disease
DX: I25.10 Atherosclerotic heart disease of native coronary artery without angina pectoris (principal)

== ENCOUNTER 2020-12-19 10:32 | Day surgery (SDC) | payer MEDICARE, BC ==
[~2020-12-19] VITALS: Ht 177.8 cm; Wt 114.5 kg
--- NOTE | ~2020-12-19 | HEMODYNAMI ---
PATIENT:WILFRIDO BUCK MEDICAL RECORD: [id number] : 54 LOCATION:[facility] ADMISSION DATE: 12/19/20 Generatedon:113:38 Patient name: WILFRIDO UBCK Patient #: [id number] SSN: [id number] : 1950 Date of study: 12/19/2020 Page: Of Hemodynamic Procedure Report Patient Data Patient Demographics Procedure consent was obtained First Name: WILFRIDO Gender: Male Last Name: CIELO : 1950 Patient #: [id number] Age: 70 year(s) Race: SSN: [id number] Additional ID: [id number] Contact details Address: [address] [place] [address] State: [place] City: [place] Zip code: [address] Past Medical History History of disease Date Diagnosis Comments CAD Allergies: No known allergies Admission Admission Data Admission Date: 12/19/2020 Admission Time: 10:32 Arrival Date: 12/19/2020 Arrival Time: 0:00 Height (in.): 70 BSA: 2.31 (m2) Height (cm.): 177.8 BMI: 36.38 (kg/m2) Weight (lbs.): 253.53 Weight (kg.): 115 Lab Results Lab Result Date: 12/19/2020 Lab Result Time: 0:00 Biochemistry Name Units Result Min Max BUN mg/dl 18 --(---*)-- 7 18 Creatinine mg/dl 1.1 --(--*-)-- 0.6 1.3 eGFR ml/min 70.08950 *-(----)-- 90 120 NONAFRICAN CBC Name Units Result Min Max Hematocrit % 40.2 -*(----)-- 42 54 Hemoglobin g/dl 13.2 -*(----)-- 13.5 17.5 Procedure Procedure Types Cath Procedure Diagnostic Procedure [facility] w/Coronaries FFR/IVUS FFR Initial Sedation Charges Moderate Sedation 25-39 minutes PCI Procedure Coronary Stent Coronary Stent Initial Hemochron ACT Test Procedure Description Procedure Date Procedure Date: 12/19/2020 Procedure Start Time: 13:04 Procedure End Time: 13:34 Procedure Staff Name Function Evans Zavala MD Performing Physician Vikki Montague RT Monitor Elli Ruiz RT Scrub Fela Fitzgerald RN Nurse Procedure Data Cath Procedure Fluoroscopy Diagnostic fluoroscopy Total fluoroscopy Time: 3.9 time: 3.9 min min Diagnostic fluoroscopy Total fluoroscopy dose: 890 dose: 890 mGy mGy Contrast Material Contrast Material Type Amount (ml) Isovue 300 99 Entry Location Entry Primary Successful Side Size Upsize Upsize Entry Closure Succes sful Closure Location (Fr) 1 (Fr) 2 (Fr) Remarks Device Remarks Femoral Right 5 Fr 6 Fr Exoseal artery Short Estimated blood loss: 10 ml Diagnostic catheters Device Type Used For End Catheter Placement MULTIPACK JL 4.0 5Fr Procedure catheter MULTIPACK 3DRC 5Fr Procedure catheter MULTIPACK Pigtail 5 Fr Ventriculography catheter Procedure Complications No complications Procedure Medications Medication Administration Route Dosage Oxygen etCO2 Nasal cannula 2 l/min Lidocaine 2% added to field 20 Heparin Flush Bag added to field 2 bags (1000units/500ml NS) 0.9% NaCl I.V. 100 ml/hr Heparin Bolus I.V. 4000 units Versed I.V. 1 mg Fentanyl I.V. 50 mcg Integrilin (Bolus I.V. 10.2 ml 2mg/ml) Versed I.V. 1 mg Fentanyl I.V. 50 mcg Plavix P.O. 600 mg Heparin Bolus I.V. 2000 units Hemodynamics Rest BSA: 2.31 (m2) HGB: 13.2 (g/dl) O2 Consumption: Estimated: 275.67 (ml/min) O2 Co nsumption indexed: Estimated:119.34 (ml/min/m) Heart Rate: 79 (bpm) Pressure Samples Time Site Value (mmHg) Purpose Heart Use Rate(bpm) 13:11 LV 110/17,11 Snapshot 92 13:11 AO 167/108(117) Pullback 99 13:20 AO 124/70(92) Snapshot 77 Gradients Valve Time Site Site 2 Mean SEP/DFP Peak To Heart Use 1 (mmHg) (sec/min) Peak Rate (mmHg) (bpm) Aortic 13:11 LV AO 99 167/108(117) Snapshots Pre Cath Intra NCS Post Cath Vital Signs Time Heart Resp SPO2 etCO2 NIBP (mmHg) Rhythm Pain Sedation Rate (ipm) (%) (mmHg) Status Level (bpm) 12:56:30 79 17 99 0 Acquisition NSR 0 (11) 10(A) error , No pain 13:00:01 75 15 100 32.4 124/67(0) NSR 0 (11) 10(A) , No pain 13:07:03 67 15 98 39.9 114/61(0) NSR 0 (11) 10(A) , No pain 13:16:38 73 16 97 39.1 117/63(0) NSR 0 (11) 10(A) , No pain 13:20:32 79 17 98 39.9 125/62(0) NSR 0 (11) 10(A) , No pain 13:23:40 77 15 98 38.3 156/94(118) NSR 0 (11) 10(A) , No pain 13:27:52 75 13 99 39.1 160/98(131) NSR 0 (11) 10(A) , No pain 13:32:06 75 18 99 36.9 165/93(130) NSR 0 (11) 10(A) , No pain 13:36:20 70 18 99 27.8 160/95(128) NSR 0 (11) 10(A) , No pain Medications Time Medication Route Dose Verified Delivered Reason Notes Effectiveness by by 12:59:16 Oxygen etCO2 2 Evans Chahal used for Nasal l/min St Sixto Fitzgerald RN procedure cannula 12:59:24 Lidocaine 2% added 20ml Evans Krueger for local to vial [facility] anesthetic field MD JAY 12:59:30 Heparin Flush added 2 Evans Evans used for Bag to bags [facility] procedure (1000units/500ml field MD JAY NS) 12:59:39 0.9% NaCl I.V. 100 Evans Chahal Per physician ml/hr St Sixto Fitzgerald RN, MD 13:00:12 Versed I.V. 1 mg Evans Chahal for sedation St Sixto Fitzgerald RN, MD 13:00:18 Fentanyl I.V. 50 Evans Chahal for sedation mcg St Sixto Fitzgerald RN, MD 13:13:24 Heparin Bolus I.V. 4000 Evans Chahal for verif ied units St Sixto Fitzgerald RN anticoagulation with dr MD cheung 13:19:53 Integrilin I.V. 10.2 Evans Chahal for waste d (Bolus 2mg/ml) ml St Sixto Fitzgerald RN antiplatelet 9.8 ml therapy of vial 13:23:24 Versed I.V. 1 mg Evans Chahal for sedation St Sixto Fitzgerald RN, MD 13:23:28 Fentanyl I.V. 50 Evans Chahal for sedation mcg St Sixto Fitzgerald RN, MD 13:28:40 Plavix P.O. 600 Evans Chahal for mg St Sixto Fitzgerald RN antiplatelet therapy 13:30:50 Heparin Bolus I.V. 2000 Evans Chahal for verif ied units St Sixto Fitzgerald RN anticoagulation with dr MD cheung Procedure Log Time Note 12:25:26 Informed consent obtained and on chart 12:26:56 Procedure Status Elective Heart Cath (OP). 12:26:57 Time tracking: Regular hours (M-F 7:00 - 5:00) 12:27:01 Plan of Care:Hemodynamics will remain stable., Cardiac rhythm will remain stable., Comfort level will be maintained., Respiratory function will remain adequate., Patient/ family verbilizes understanding of procedure., Procedure tolerated without complication., Recovers from procedure without complications.. 12:27:11 H&P Date Dictated: 12/03/2020 Within 30 days and on chart., H&P Addendum completed by physician on day of procedure. (MUST COMPLETE FOR ALL OUTPATIENTS). 12:27:16 Patient allergic to No known allergies 12:28:59 Lab Result : Hematocrit 40.2 % 12:28:59 Lab Result : eGFR NONAFRICAN 70.67119 ml/min 12:28:59 Lab Result : Hemoglobin 13.2 g/dl 12:28:59 Lab Result : BUN 18 mg/dl 12:28:59 Lab Result : Creatinine 1.1 mg/dl 12:29:17 Patient Weight : 253.53 lbs 12:29:20 Patient Height : 70 inches 12:29:26 Arrival Date: 12/19/2020 12:00:00 AM 12:37:48 Fela Fitzgerald RN sent for patient. Start room use. 12:56:06 Warm blankets applied, and marguerite hugger turned on for patient comfort. 12:56:06 Correct patient and procedure confirmed by team. 12:56:07 ECG and BP/O2 sat monitors applied to patient. 12:56:08 Vital chart was started 12:56:09 Baseline sample Acquired. 12:56:14 Rhythm: sinus rhythm 12:56:15 Full Disclosure recording started 12:56:18 Family in patients room. 12:56:20 Patient NPO since Midnight. 12:56:23 Is the patient allergic to Iodine/contrast media? No. 12:56:25 Is patient on blood thinner?No 12:56:28 Patient diabetic? No. 12:56:35 Snore? Yes 12:56:36 Sleep apnea? No 12:56:42 Patient pain scale 0/10 ?. 12:56:49 IV patent on arrival in left forearm with 0.9% NaCl at [facility]. 12:56:52 Lab results completed and on chart. 12:57:00 Right groin area was prepped with chlora-prep and draped in sterile fashion 12:57:02 Alarms reviewed by R. N. 12:57:02 Sharps counted by scrub and verified by R.N. 12:57:04 Physician arrived 12:57:05 --------ALL STOP TIME OUT------ 12:57:19 Final Timeout: patient, procedure, and site verified with staff and physician. All members of the team are in agreement. 12:57:21 Right groin site verified by team. 12:57:25 Fire Safety Assessment: A--An alcohol-based skin anteseptic being used preoperatively., C--Open oxygen or nitrous oxide is being used., D--An ESU, laser, or fiber-optic light is being used. 12:57:29 Physical assessment completed. ASA score P 3 - A patient with severe systemic disease as per Evans Zavala MD. 12:57:35 2) 60-89 Mildly reduced kidney function, and other findings (as for stage 1) point to kidney disease. 12:57:39 Maximum allowable contrast dose (3.7 X eGFR X 0.75)197 ml. 12:57:44 Sedation plan: IV Moderate Sedation Medication:Versed, Fentanyl 12:57:51 Use device set Femoral Dx 12:58:04 ACIST Syringe (51342) opened to sterile field. 12:58:05 Bag Decanter (2001S) opened to sterile field. 12:58:05 Medline Cath Pack ([id number]) opened to sterile field. 12:58:07 ACIST Hand Control (51621) opened to sterile field. 12:58:08 ACIST Manifold (46586) opened to sterile field. 12:58:08 DIAGNOSTIC Multipack 5Fr catheter set (II3509) opened to sterile field. 12:58:09 Tegaderm 4 x 4 (1626W) opened to sterile field. 12:58:10 SHEATH 5FR Dupree (AVK370) opened to sterile field. 12:58:11 EMERALD Guide Wire (960-218) opened to sterile field. 12:59:16 Oxygen 2 l/min etCO2 Nasal cannula was administered by Fela Fitzgerald RN; used for procedure; Verbal order read back and verified. 12:59:24 Lidocaine 2% 20ml vial added to field was administered by Evans Zavala MD; for local anesthetic; Verbal order read back and verified. 12:59:30 Heparin Flush Bag (1000units/500ml NS) 2 bags added to field was administered by Evans Zavala MD; used for procedure; Verbal order read back and verified. 12:59:39 0.9% NaCl 100 ml/hr I.V. was administered by Fela Fitzgerald RN; Per physician; Verbal order read back and verified. 13:00:12 Versed 1 mg I.V. was administered by Fela Fitzgerald RN; for sedation; Verbal order read back and verified. 13:00:18 Fentanyl 50 mcg I.V. was administered by Fela Fitzgerald RN; for sedation; Verbal order read back and verified. 13:03:55 Procedure started. 13:04:26 Local anesthetic to right femoral artery with Lidocaine 2% by Evans Zavala MD.INITIAL ACCESS ONLY 13:04:43 A 5 Fr sheath was inserted into the Right Femoral artery 13:08:08 A MULTIPACK JL 4.0 5Fr catheter was advanced over the wire and used for Procedure. 13:08:11 LCA angiography performed. 13:09:01 Catheter removed. 13:09:09 A MULTIPACK 3DRC 5Fr catheter was advanced over the wire and used for Procedure. 13:09:13 RCA angiography performed. 13:10:10 Catheter removed. 13:10:16 A MULTIPACK Pigtail 5 Fr catheter was advanced over the wire and used for Ventriculography. 13:10:31 LV angiography performed. 13:11:33 EF : 55 % 13:13:08 Catheter removed. 13:13:19 Sheath upsized to a 6 Fr Short. 13:13:24 Heparin Bolus 4000 units I.V. was administered by Fela Fitzgerald RN; for anticoagulation; verified with dr cheung Verbal order read back and verified. 13:14:10 INFLATOR Merit BasixCompak (NI6492) opened to sterile field. 13:14:10 SHEATH 6FR Dupree (YUU910) opened to sterile field. 13:14:11 GUIDE 6FR JL 4.0 catheter ([id number]) opened to sterile field. 13:14:12 Marengo OmniWire (73382) opened to sterile field. 13:14:27 6 Fr JL4 guide catheter was inserted over the wire 13:14:31 omni wire advanced. 13:16:14 Vital chart was stopped 13:16:18 Vital chart was started 13:18:25 Wire advanced across lesion. 13:19:53 Integrilin (Bolus 2mg/ml) 10.2 ml I.V. was administered by Fela Fitzgerald RN; for antiplatelet therapy; wasted 9.8 ml of vial Verbal order read back and verified. 13:20:53 Place stent Inflation Number: 1 A INTEGRITY RX 3.0 x 09 stent ([id number]) was prepped and advanced across the Mid LAD . The stent was deployed at 14 AMBERLY for 0:12 (min:sec) . 13:21:22 IFR wire messured 0.75 13:22:35 Inflation number: 2 The stent balloon was then re-inflated across the Mid LAD to 8 AMBERLY for 0:23 (min:sec) . 13:23:02 Inflation number: 3 The stent balloon was then re-inflated across the Mid LAD to 12 AMBERLY for 0:12 (min:sec) . 13:23:24 Versed 1 mg I.V. was administered by Fela Fitzgerald RN; for sedation; Verbal order read back and verified. 13:23:28 Fentanyl 50 mcg I.V. was administered by Fela Fitzgerald RN; for sedation; Verbal order read back and verified. 13:25:45 mLAD lesion measured at .94 with IFR 13:25:47 IFR post stent 13:26:35 Wire removed. 13:26:36 Guide catheter removed. 13::49 Sheath removed intact; hemostasis achieved with Exoseal to the Right Femoral artery. 13:28:27 Procedure ended.(Physican Out) 13:28:40 Plavix 600 mg P.O. was administered by Fela Fitzgerald RN; for antiplatelet therapy; Verbal order read back and verified. 13:28:44 Fluoroscopy time 03.90 minutes. 13::48 Fluoroscopy dose: 890 mGy 13:28:48 Flurop Dose total: 890 13:28:54 Dose Area Product 95152 mGy/cm. 13:29:01 Contrast amount:Isovue 300 99ml. 13:29:10 Maximum allowable dose exceeded? No. 13:29:11 Sharps counted by scrub and verified by R.N. 13:29:12 Insertion/operative site no bleeding no hematoma. 13:29:17 Post-op/insertion site Right Femoral artery dressed using a 4 x 4 and Tegaderm. 13:29:20 Post Procedure Pulses reassessed and unchanged 13:29:24 ACT drawn and resulted at 120 seconds. (normal therapeutic range 180-240 seconds). 13:29:26 Post-procedure physical assessment completed. ASA score P 3 - A patient with severe systemic disease as per Evans Zavala MD. 13:29:29 Post procedure rhythm: unchanged. 13:29:32 Estimated blood loss: 10 ml 13:29:42 Post procedure instruction explained to patient.Patient verbalizes understanding. 13:30:50 Heparin Bolus 2000 units I.V. was administered by Fela Fitzgerald RN; for anticoagulation; verified with dr cheung Verbal order read back and verified. 13:33:19 Procedure type changed to Cath procedure, Diagnostic procedure, LHC, C w/Coronaries, FFR/IVUS, FFR Initial, Sedation Charges, Moderate Sedation 25-39 minutes, PCI procedure, Coronary Stent, Coronary Stent Initial, Hemochron ACT Test 13:33:21 Procedure and supply charges have been captured, reviewed, submitted and are correct. 13:33:51 Procedure Complication : No complications 13:33:59 [facility] Findings: MVD- PCI performed (see procedure note) 13:34:18 See physician's report for complete and final results. 13:34:20 Report given to Pre/Post Procedure Room. 13:34:25 Patient transfered to Pre/Post Procedure Room with Stretcher. 13:34:27 Procedure ended. 13:34:27 Full Disclosure recording stopped 13:34:30 End room use (Document Last) 13:35:34 End room use (Document Last) 13:36:03 End room use (Document Last) 13:38:02 Vital chart was stopped Intervention Summary Intervention Notes Time ActionType Lesion and Equipment Action# Pressure Duration Attributes Used 13:20:53 Place stent Mid LAD INTEGRITY RX 1 14 00:12 3.0 x 09 stent ([id number]) 13:22:35 Reinflate Mid LAD INTEGRITY RX 2 8 00:23 stent 3.0 x 09 balloon stent ([id number]) 13:23:02 Reinflate Mid LAD INTEGRITY RX 3 12 00:12 stent 3.0 x 09 balloon stent ([id number]) Device Usage Item Name Manufacture Quantity Catalog Hospital Part Current Minimal Lot# / Number Charge Number Stock Stock Serial# Code ACIST Acist 1 51795 066999 922465 253844 20 Syringe Medical (02952) Systems Inc Bag Decanter Microtek 1 2002S 164612 81450 221373 5 (2001S) Medical Inc. Medline Cath Medline 1 [id number] 367217 40086 648730 5 Pack ([id number]) ACIST Hand Acist 1 65304 492523 321876 770131 5 Control Medical (03698) Systems Inc ACIST Acist 1 17465 141234 724669 675898 5 Manifold Medical (47464) Systems Inc DIAGNOSTIC Cardinal 1 [id number] 120163 20814 141852 30 Multipack Richard [employer]s 5Fr catheter set (VX9260) Tegaderm 4 x 3M 1 1626W 721973 937024 927704 5 4 (1626W) SHEATH 5FR Terumo 1 CYN697 740976 750163 604305 5 Dupree (PHU656) EMERALD Cardinal 1 502-455 607678 825982 666727 5 Guide Wire [facility] (502-455) MULTIPACK JL Cardinal 1 893296 5 4.0 5Fr Health catheter MULTIPACK Cardinal 1 951034 5 3DRC 5Fr Health catheter MULTIPACK Cardinal 1 927476 5 Pigtail 5 Fr Health catheter INFLATOR [facility] 1 [id number] 856957 767588 260426 15 [facility] (HA0036) SHEATH 6FR Terumo 1 TSO485 158424 359305 541774 40 Dupree (SCF339) GUIDE 6FR JL Medtronic 1 [id number] 536960 55415 971711 1 4.0 catheter (BD1PI20) Marengo Marengo 1 [id number] 133547 54832 9997 5 OmniWire (50866) INTEGRITY RX Medtronic 1 [id number] 195923 058747 470658 5 [id number] 3.0 x 09 stent ([id number]) Signature Audit Letts Stage Time Signature Unsigned Intra-Procedure 12/19/2020 Vikki Montague 1:35:34 PM RT(R) Intra-Procedure 12/19/2020 Fela Ftizgerald RN 1:36:03 PM Intra-Procedure 12/19/2020 Evans Shields 1:38:00 PM Sixto JAY [id number] [place] [address]
[2020-12-19] MEDS ORDERED: CYANOCOBAL1000 MCG/4 SC (10:55)
[2020-12-19] MEDS ORDERED: XTANDI40 MG (10:57)
[2020-12-19 11:05] VITALS: BP 147/64; Ht 177.8 cm; Wt 114.5 kg
[2020-12-19 11:18] LABS: BASOPHILS 0.3 % (0-2); EOSINOPHILS 2.4 % (0-7); HEMATOCRIT 40.2 % (42.0-54.0); HEMOGLOBIN 13.2 g/dL (13.5-17.5); IMMATURE GRANULOCYTES 0.4 % (0-5); LYMPHOCYTE ABS# 2.03 10x3/uL (1.32-3.57); LYMPHOCYTES 30.2 % (15-50); MCH 26.5 pg (26.0-34.0); MCHC 32.8 g/dL (31.0-37.0); MCV 80.7 fL (80.0-100.0); MEAN PLATELET VOLUME 10.7 fL (7.4-10.4); MONOCYTES 10.4 % (2-11); NEUTROPHIL ABS# 3.79 10x3/uL (1.78-5.38); NEUTROPHILS 56.3 % (40-80); PLATELET COUNT 219 10x3/uL (130-400); RBC 4.98 10x6/uL (4.20-6.10); RDW 14.4 % (11.5-14.5); WBC 6.7 10x3/uL (4.8-10.8)
[2020-12-19 11:33] LABS: ANION GAP 10.1 mmol/L (8-16); CALCIUM 9.6 mg/dL (8.5-10.1); CARBON DIOXIDE 30.1 mmol/L (21.0-32.0); CHOL - HDL RATIO 3.4 ratio (2.3-4.9); CREATININE - SERUM 1.1 mg/dL (0.6-1.3); LDL-HDL RATIO 1.9 ratio (1.5-3.5); POTASSIUM - SERUM 4.2 mmol/L (3.5-5.1)
[2020-12-19] MEDS ORDERED: PLAVIX75 MG PO (13:50)
--- NOTE | 2020-12-19 13:50 | NUR ---
PT ARRIVED BY STRETCHER. PLACED ON MONITORS. ASSESSMENT COMPLETED. VSS AT THIS TIME. FAMILY AT BEDSIDE. CALL LIGHT WITHIN REACH.
--- NOTE | 2020-12-19 14:05 | NUR ---
RIGHT GROIN DRESSING C/D/I. NO S/S OF HEMATOMA NOTED. RIGHT PEDAL PULSE PALPABLE. VSS AT THIS TIME. PT RESTING COMFORTABLY. DENIES NAUSEA/PAIN.
--- NOTE | 2020-12-19 14:35 | NUR ---
PT RESTING COMFORTABLY. VSS. RIGHT GROIN DRESSING C/D/I. NO S/S OF HEMATOMA NOTED. RIGHT PEDAL PULSE PALPABLE. PT DENIES NAUSEA/PAIN. CALL LIGHT WITHIN REACH. FAMILY AT BEDSIDE.
--- NOTE | 2020-12-19 15:05 | NUR ---
RIGHT GROIN DRESSING C/D/I. NO S/S OF HEMATOMA NOTED. CALL LIGHT WITHIN REACH. VSS AT THIS TIME. PT RESTING COMFORTABLY. NO NEEDS AT THIS TIME. DENIES NAUSEA/PAIN. RIGHT PEDAL PULSE PALPABLE.
--- NOTE | 2020-12-19 15:35 | NUR ---
PT RESTING COMFORTABLY. VSS AT THIS TIME. CALL LIGHT WITHIN REACH. RIGHT GROIN DRESSING C/D/I. NO S/S OF HEMATOMA NOTED. RIGHT PEDAL PULSE PALPABLE. DENIES NAUSEA/PAIN AT THIS TIME.
--- NOTE | 2020-12-19 16:30 | NUR ---
RIGHT GROIN DRESSING C/D/I. NO S/S OF HEMATOMA NOTED. RIGHT PEDAL PULSE PALPABLE. HEAD OF BED INC TO 30 DEGREES. TOLERATED WELL. PT SET UP WITH SANDWICH TRAY AND DRINK. DENIES NAUSEA/PAIN.
--- NOTE | 2020-12-19 17:00 | NUR ---
RIGHT GROIN DRESSING C/D/I. NO S/S OF HEMATOMA NOTED. PIV D/C'D WITH CATH TIP INTACT. TOLERATED WELL. PT INSTRUCTED TO GET UP AND DRESSED AT THIS TIME. FAMILY AT BEDSIDE TO ASSIST.
--- NOTE | 2020-12-19 17:10 | NUR ---
DISCUSSED DISCHARGE INSTRUCTIONS WITH PT AND PT'S . THEY VOICED UNDERSTANDING.
--- NOTE | 2020-12-19 17:15 | NUR ---
RIGHT GROIN DRESSING C/D/I. NO S/S OF HEMATOMA NOTED. PT TO RESTROOM. VOIDED WITHOUT DIFFICULTY. PT TAKEN OUT TO VEHICLE BY WHEELCHAIR. NO S/S OF DISTRESS NOTED. ALL BELONGINGS AND PAPERWORK IN HAND.
--- NOTE | 2020-12-20 09:41 | OP ---
PATIENT NAME: WILFRIDO BUCK MEDICAL RECORD: [id number] :54 LOCATION:D.CAT ADMISSION DATE: SURGEON: GUY BELLE MD DATE OF OPERATION: 12/19/2020 PROCEDURE: Left heart catheterization, selective coronary angiography plus PTCA stenting plus IFR wire of the LAD, right femoral artery approach. CATHETERS: A 5-Latvian sheath, 5/4 left and right Angel, 5/4 pig. The procedure was well tolerated. The patient was returned to the maharaj. Sheath removed. ExoSeal device placed. FINDINGS: Left ventriculography in 30-degree GUTIERREZ view: Normal wall motion and normal systolic function. CORONARY ANATOMY: Left main: Left main is free of disease. LAD: LAD has a previously placed stent is widely patent. There is a tight 80% to 90% stenosis just distal to the previously placed stent. Circumflex: Free of disease. Right coronary artery: free of disease. DESCRIPTION: A 5-Latvian sheath was exchanged for a 6-Latvian sheath. A JL4 guiding catheter provided good guide catheter support followed by 300 cm IFR wire was placed down this portion of the vessel. Stent deployed was a 3.0 x 9 Integrity nondrug-eluting stent. After initial inflations, we remeasured IFR wire. There was still significant and less than 0.9 after inflating just inside the stent at higher pressure as well as between the 2 stents. IFR wire improved and normal. IMPRESSION: Successful percutaneous transluminal coronary angioplasty stenting with IFR wire guidance, 80% LAD stenosis, no significant residual. AURE flow was 3 throughout the procedure. Heparin and Integrilin were used during the case. Sheath closed with ExoSeal device. TRANSINT:[id number] Voice Confirmation ID: [id number] DOCUMENT ID: [id number] GUY BELLE MD at 0941 CC: [id number] DICTATION DATE: 12/19/20 1340 MECHANICAL DEVELOPMENT ENGINEER: 12/19/20 1630 [facility] 12/19/20 [facility] [address] [place] [address]
== END 2020-12-19 17:15 | disposition home or self-care (01) ==
LOC: D.CATH 10:32
PROVIDERS: ATTEND Internal Medicine Interventional Cardiology
DX: R94.30 Abnormal result of cardiovascular function study, unspecified (principal); I25.110 Atherosclerotic heart disease of native coronary artery with unstable angina pectoris